=== PATIENT | female | born 1935 | race Caucasian/White ===

== ENCOUNTER 2017-11-27 08:17 | Day surgery (SDC) | payer OTHER ==
[2017-11-25 14:32] VITALS: BMI 30.8
[~2017-11-27 08:17] MED LIST: ACETAMINOPHEN 325 MG TABLET (FP) PO PRN; CIPROFLOXACIN HCL 0.3% OPHTH 2.5ML BOTTLE OP SCH; CYCLOPENTOLATE HCL 1% OPHTH SOLN 2 ML BOTTLE OP SCH; FLURBIPROFEN 0.03% OPHTH SOLN 2.5 ML BOTTLE OP SCH; PHENYLEPHRINE 2.5% OPHTH SOLN 15 ML BOTTLE OP SCH; TROPICAMIDE 1% OPHTH SOLN 15 ML BOTTLE OP SCH
[2017-11-27 08:48] VITALS: TEMP 98.4
[2017-11-27] MEDS: PHENYLEPHRINE 2.5% OPHTH SOLN 15 ML BOTTLE ONE ×2 (09:05→09:21)
[2017-11-27] MEDS: FLURBIPROFEN 0.03% OPHTH SOLN 2.5 ML BOTTLE ONE ×2 (09:05→09:21)
[2017-11-27] MEDS: CYCLOPENTOLATE HCL 1% OPHTH SOLN 2 ML BOTTLE ONE ×2 (09:05→09:20)
[2017-11-27] MEDS: TROPICAMIDE 0.5% OPHTHALMIC SOLN 15 ML BOTTLE ONE ×2 (09:05→09:22)
[2017-11-27] MEDS: CIPROFLOXACIN 0.3% EYE DROPS 5 ML BOTTLE ONE ×2 (09:05→09:20)
[2017-11-27] MEDS ORDERED: MIDAZOLAM HCL 2 MG/2 ML SINGLE DOSE VIAL ONE (09:43)
[2017-11-27] MEDS ORDERED: TETRACAINE 0.5% OPHTH SOLN 2 ML BOTTLE OD ONE (10:07)
[2017-11-27] MEDS ORDERED: POVIDONE-IODINE 5% OPHTHALMIC PREP 30 ML SOLUTION OD ONE (10:10)
[2017-11-27] MEDS ORDERED: hydrALAZINE HCL 20 MG/ML VIAL ONE (10:13)
[2017-11-27] MEDS ORDERED: CHONDROITIN SU A/HYALUR SOD 1 KIT IO ONE (10:17)
[2017-11-27] MEDS ORDERED: LIDOCAINE HCL 1% PRESERVATIVE FREE - 30ML VIAL IO ONE (10:17)
[2017-11-27] MEDS ORDERED: BSS (NA/CA/MG/K) BALANCED SALT SOLUTION OPHTH SOLN 15 ML BOTTLE OD ONE (10:17)
[2017-11-27] MEDS ORDERED: EPINEPHrine/PF 1 MG/1 ML (1:1,000) AMPULE IO ONE (10:26)
[2017-11-27 11:04] VITALS: PULSE 100
[2017-11-27] MEDS ORDERED: ACETAMINOPHEN 325 MG TABLET (FP) ONE (11:25)
--- NOTE | 2017-11-27 11:27 | OP ---
DATE OF OPERATION: DATE OF DICTATION: 11/27/2017 PREOPERATIVE DIAGNOSIS: Cataract, right eye. ASSOCIATED DIAGNOSIS: Astigmatism. POSTOPERATIVE DIAGNOSIS: Cataract, right eye. PROCEDURE: Phacoemulsification of right cataract with toric posterior chamber intraocular lens implantation, the lens used [id number], 23.0-diopter power, serial number [id number]. ANESTHESIA: Topical MAC. COMPLICATIONS: None. PROCEDURE: The patient was brought to the operating room and correctly identified along with the operative site as well as correct intraocular lens schwartz. With the patient sitting upright, the 3, 6 and 9 o'clock positions were then marked using a toric marker. The patient was then reclined and positioned in the chair and the garcia were reinforced underneath the microscope. The eye was then prepped and draped in the usual sterile fashion, including 5% Betadine solution in the conjunctival sac and an eyelid drape. An eyelid speculum was then placed into the right eye. The 170-degree position was then marked using a toric marker as well and a paracentesis was created. Approximately 0.5 mL, of 1% preservative-free lidocaine with epinephrine was given and then viscoelastic was injected to inflate the anterior chamber. A temporal clear corneal wound was created at 180 degrees. The capsulorrhexis was performed. The nucleus was then hydrodissected with BSS and removed with phacoemulsification via a gcfexi-eok-ijzdyia approach. The remaining cortical material was then irrigated and aspirated from the eye. The viscoelastic was injected to inflate the capsular bag. The lens was injected into the capsular bag. The IOL happened to be aligned at exactly 170 degrees. The viscoelastic was removed with care made not to rotate the lens. A small amount of clockwise was noted however, so using a Sinskey hook was used with irrigating with the IA tip inside the eye to rotated the intraocular lens counterclockwise until it was in good position. A the end of the procedure, the intraocular lens was well centered and aligned with the corneal markings as well as covered by the anterior capsule border. All wounds were tested and found to be watertight. No sutures were placed. The eye patched and shielded with topical vancomycin and the patient discharged from the operating room in a stable condition. LIONEL AWAD M.D. [id number] MTDD
[2017-11-27] MEDS ORDERED: ACETAMINOPHEN 325 MG TABLET (FP) PO ONE (11:30)
[2017-11-27 13:33] VITALS: BP 148/72
== END 2017-11-27 12:15 | disposition home or self-care (01) ==
LOC: JASU-SURG 08:17
PROVIDERS: ATTEND Ophthalmology
PROC: 08RJ3JZ Replacement of Right Lens with Synthetic Substitute, Percutaneous Approach (ICD-10-PCS; principal; 2017-11-27 10:00)
DX: H26.9 Unspecified cataract (principal); H52.201 Unspecified astigmatism, right eye
CPT/HCPCS: 82962

== ENCOUNTER 2017-12-18 09:07 | Day surgery (SDC) | payer OTHER ==
[~2017-12-18 09:07] MED LIST changes: -CIPROFLOXACIN HCL 0.3% OPHTH 2.5ML BOTTLE OP SCH; -CYCLOPENTOLATE HCL 1% OPHTH SOLN 2 ML BOTTLE OP SCH; +EPINEPHrine/PF 1 MG/1 ML (1:1,000) AMPULE SQ ONE; -FLURBIPROFEN 0.03% OPHTH SOLN 2.5 ML BOTTLE OP SCH; -TROPICAMIDE 1% OPHTH SOLN 15 ML BOTTLE OP SCH
[2017-12-18] MEDS ORDERED: CYCLOPENTOLATE HCL 1% OPHTH SOLN 2 ML BOTTLE ONE (09:29)
[2017-12-18] MEDS ORDERED: CIPROFLOXACIN 0.3% EYE DROPS 5 ML BOTTLE ONE (09:29)
[2017-12-18] MEDS ORDERED: FLURBIPROFEN 0.03% OPHTH SOLN 2.5 ML BOTTLE ONE (09:29)
[2017-12-18] MEDS ORDERED: PHENYLEPHRINE 2.5% OPHTH SOLN 15 ML BOTTLE ONE (09:29)
[2017-12-18] MEDS: CYCLOPENTOLATE HCL 1% OPHTH SOLN 2 ML BOTTLE OP SCH ×2 (09:35→09:40)
[2017-12-18] MEDS: TROPICAMIDE 1% OPHTH SOLN 15 ML BOTTLE OP SCH ×2 (09:35→09:40)
[2017-12-18] MEDS: CIPROFLOXACIN HCL 0.3% OPHTH 2.5ML BOTTLE OP SCH ×2 (09:35→09:40)
[2017-12-18] MEDS: FLURBIPROFEN 0.03% OPHTH SOLN 2.5 ML BOTTLE OP SCH ×2 (09:35→09:40)
[2017-12-18 09:53] VITALS: TEMP 98.1
[2017-12-18] MEDS ORDERED: MIDAZOLAM HCL 2 MG/2 ML SINGLE DOSE VIAL ONE (10:04)
[2017-12-18] MEDS ORDERED: TETRACAINE 0.5% OPHTH SOLN 2 ML BOTTLE TP ONE (10:10)
[2017-12-18] MEDS ORDERED: LIDOCAINE HCL 1% PRESERVATIVE FREE - 30ML VIAL IO ONE (10:24)
[2017-12-18] MEDS ORDERED: CHONDROITIN SU A/HYALUR SOD 1 KIT IO ONE (10:26)
[2017-12-18] MEDS ORDERED: EPINEPHrine/PF 1 MG/1 ML (1:1,000) AMPULE SQ ONE (10:35)
[2017-12-18] MEDS ORDERED: ACETAMINOPHEN 325 MG TABLET (FP) ONE (11:07)
[2017-12-18 14:53] VITALS: BP 156/72; PULSE 72
--- NOTE | 2017-12-18 17:07 | OP ---
DATE OF OPERATION: DATE OF DICTATION: 12/18/2017 PREOPERATIVE DIAGNOSIS: Cataract left eye. ASSOCIATED DIAGNOSIS: Astigmatism, left eye. PROCEDURE: Phacoemulsification of left cataract with Toric posterior chamber intraocular lens implantation, left eye. POSTOPERATIVE DIAGNOSIS: Cataract left eye. Astigmatism, left eye. ANESTHESIA: Topical, MAC. COMPLICATIONS: None. DATE OF SURGERY: OPERATION: Phacoemulsification with posterior chamber intraocular lens implantation, left eye. Lens used [id number], 22.0 Diopter power, Serial No. [id number]. PREOPERATIVE DIAGNOSIS: Cataract, left eye. POSTOPERATIVE DIAGNOSIS: Cataract, left eye. SURGEON: Lionel Awad M.D. ANESTHESIA: Topical MAC. COMPLICATIONS: None. PROCEDURE: The patient was brought to the operating room and correctly identified along with the operative site as well as the correct intraocular lens schwartz. With the patient sitting upright, the 3, 6, and 9 o'clock positions were then marked on her eye. The patient was then reclined, and the garcia were reinforced underneath the microscope. The patient was then prepped and draped in the usual sterile fashion including 5% Betadine solution in the conjunctival sac and an eyelid drape. An eyelid speculum was then placed into the left eye. Using a Toric marker, the 15 degree position was marked. A paracentesis port was then created and 0.5 mL of 1% preservative free Lidocaine was given intracamerally. Viscoelastic was then injected to inflate the anterior chamber. A temporal clear corneal wound was created at approximately 10 to 15 degrees. A continuous circular capsulorrhexis was performed. The nucleus was then hydro-dissected with BSS and removed with phacoemulsification via the divide and conquer approach. The remaining cortical material was irrigated and aspirated into the eye. The lens was injected into the capsular bag, and rotated until it was approximately 15 degrees according to the corneal marker. The viscoelastic was then irrigated and aspirated from the eye. Using the IA tip as well as a Sinskey hook, the lens was then rotated in its final position. All wounds are tested and found to be watertight as well as hydrated. Again, the intraocular lens was reviewed and noted to be alive with corneal markings. No suture was placed. Topical Vancomycin was given, the eye patched and shielded. The patient was discharged from the operating room in stable condition. LIONEL AWAD M.D. [id number]
== END 2017-12-18 12:00 | disposition home or self-care (01) ==
LOC: JASU-SURG 09:07
PROVIDERS: ATTEND Ophthalmology
PROC: 08RK3JZ Replacement of Left Lens with Synthetic Substitute, Percutaneous Approach (ICD-10-PCS; principal; 2017-12-18 10:00)
DX: H26.9 Unspecified cataract (principal); H52.202 Unspecified astigmatism, left eye